=== PATIENT | female | born 1930 | race Caucasian/White ===

== ENCOUNTER 2017-02-25 10:35 | Emergency (ER) | payer MEDICARE, BC ==
[2017-02-25 13:51] VITALS: BP 130/69
--- NOTE | 2017-02-25 13:55 | CR ---
Two-view chest Comparison: Rib series from 2009. Findings: There has been interval development of a 2.6 cm nodular density seen centrally within the left upper lobe region. The finding is concerning for a pulmonary nodule. There are no infiltrates or effusions. There is borderline cardiac enlargement. The vascular structures are within normal limits. Impression: 1. Probable left upper lobe pulmonary nodule. Nonemergent chest CT is recommended for further evaluat ion. 2. No acute findings.
== END 2017-02-25 13:49 | disposition home or self-care (01) ==
LOC: JP.ED 10:35
DX: R07.89 Other chest pain (principal)
CPT/HCPCS: 36415; 71020; 71020-26; 80053; 84484; 85025; 85379; 93005; 93010; 99285; 99285-25

== ENCOUNTER 2017-10-23 22:32 | Emergency (ER) | payer MEDICARE, BC ==
[2017-10-23 22:46] VITALS: BP 140/64
[2017-10-23] MEDS ORDERED: HYDROmorphone 0.5 MG/0.5 ML Syringe IM ONE (23:32)
--- NOTE | 2017-10-23 23:38 | EDM.PDOC ---
ED HPI GENERAL MEDICAL PROBLEM - General Chief Complaint: Lower Extremity Injury/Pain Stated Complaint: HIP PAIN VIA NORTH Time Seen by Provider: 10/23/17 22:50 Source of Information: Reports: Patient History Limitations: Reports: No Limitations - History of Present Illness INITIAL COMMENTS - FREE TEXT/NARRATIVE: pt arrived with severe pain in the left hip. She has seen Hayley Godwin and she did have a injection into the hip On thursday. At this point she has not seen benefit from the shot. She has an appt with follow up with Hayley Godwin On thu. She was not given any pain meds so she has been very uncomfortable. Onset: Gradual Duration: Day(s): Location: Reports: Lower Extremity, Left Associated Symptoms: Reports: No Other Symptoms Left Hip Pain Score (Numeric/FACES): 5 - Related Data Allergies Allergy/AdvReac Type Severity Reaction Status Date / Time cortisone Allergy Other Verified 10/23/17 23:09 prednisone Allergy Other Verified 10/23/17 23:09 environmental Allergy Other Uncoded 10/23/17 23:09 Home Meds: Home Meds Aspirin [Low Dose Aspirin EC] 81 mg PO DAILY 11/03/14 [History] Atenolol 50 mg PO DAILY 11/03/14 [History] B2/Vit A,C & E/Lut/Zeaxanth/Mn [Icaps] 1 cap PO DAILY 11/03/14 [History] Cholecalciferol (Vitamin D3) [Vitamin D] 400 unit PO DAILY 11/03/14 [History] Doxazosin Mesylate [Cardura] 1 mg PO DAILY 11/03/14 [History] FLUoxetine [PROzac] 20 mg PO DAILY 11/03/14 [History] Pantoprazole [Protonix] 20 mg PO DAILY 11/03/14 [History] Ubidecarenone/Vitamin E Mixed [Coenzyme Q10 200 MG] 200 mg PO DAILY 11/03/14 [ History] atorvaSTATin [Lipitor] 40 mg PO BEDTIME 11/03/14 [History] Sulindac [Clinoril] 200 mg PO BIDMEALS 10/20/17 [History] Past Medical History HEENT History: Reports: Macular Degeneration Cardiovascular History: Reports: High Cholesterol, Hypertension 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: 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, Musculoskeletal History: Reports: Arthritis, Osteoarthritis Psychiatric History: Reports: Depression Hematologic History: Reports: Folic Acid Oncologic (Cancer) History: Reports: Other (See Below) Other Oncologic History: 1980 lympnode in left hip with radiation Other Dermatologic History: RASH IN BILATERAL GROIN AREA - Infectious Disease History Infectious Disease History: Reports: Chicken Pox, Influenza, Measles, Mumps, Shingles - Past Surgical History HEENT Surgical History: Reports: Cataract Surgery GI Surgical History: Reports: Colonoscopy Female Surgical History: Reports: Hysterectomy Social & Family History - Family History Family Medical History: Unobtainable - Tobacco Use Smoking Status *Q: Never Smoker - Caffeine Use Caffeine Use: Reports: Coffee - Recreational Drug Use Recreational Drug Use: No Review of Systems - Review of Systems Review Of Systems: See Below Constitutional: Reports: No Symptoms Eyes: Reports: No Symptoms Ears: Reports: No Symptoms Nose: Reports: No Symptoms Mouth/Throat: Reports: No Symptoms Respiratory: Reports: No Symptoms Cardiovascular: Reports: No Symptoms GI/Abdominal: Reports: No Symptoms Genitourinary: Reports: No Symptoms Musculoskeletal: Reports: Joint Pain, Other ( left hip) ED EXAM, GENERAL - Physical Exam Exam: See Below Free Text/Narrative:: pt arrived with pain in the left hip. She feels like she needs pain meds. Exam Limited By: No Limitations General Appearance: Alert, Moderate Distress Ears: Normal TMs Nose: Normal Inspection Throat/Mouth: Normal Inspection Head: Atraumatic Neck: Normal Inspection Respiratory/Chest: No Respiratory Distress Cardiovascular: Regular Rate, Rhythm GI/Abdominal: Soft, Non-Tender (Female) Exam: Deferred Rectal (Female) Exam: Deferred Back Exam: Normal Inspection Extremities: Other ( tender over the left hip joint capsule. ) Neurological: Alert, Oriented, Normal Cognition Course - Vital Signs Last Recorded V/S: Last Vital Signs Temp 36.5 C 10/23/17 23:07 Pulse 74 10/23/17 23:07 Resp 15 10/23/17 23:07 BP 140/64 10/23/17 23:07 Pulse Ox 95 10/23/17 23:07 - Orders/Labs/Meds Orders: Active Orders 24 hr Category Date Time Status HYDROmorphone [Dilaudid] Med 10/23/17 23:32 Once 0.5 mg IM ONETIME ONE - Re-Assessments/Exams Free Text/Narrative Re-Assessment/Exam: 10/23/17 23:40 pt was given dilaudis .5 im. Departure - Departure Time of Disposition: 23:40 Disposition: Home, Self-Care 01 Condition: Fair Clinical Impression: Degenerative joint disease of left hip - Discharge Information Referrals: PCP,None [Primary Care Provider] - Care Plan Goals: cont dequan hoover 5/325 1/2 to 1 tab q6h prn for pain - My Orders Last 24 Hours: My Active Orders 10/23/17 23:32 HYDROmorphone [Dilaudid] 0.5 mg IM ONETIME ONE - Assessment/Plan Last 24 Hours: My Active Orders 10/23/17 23:32 HYDROmorphone [Dilaudid] 0.5 mg IM ONETIME ONE
== END 2017-10-24 00:20 | disposition home or self-care (01) ==
LOC: JP.ED 22:32
DX: M16.12 Unilateral primary osteoarthritis, left hip (principal); E78.00 Pure hypercholesterolemia, unspecified; I10 Essential (primary) hypertension; K21.9 Gastro-esophageal reflux disease without esophagitis; Z79.82 Long term (current) use of aspirin; Z79.899 Other long term (current) drug therapy; Z91.09 Other allergy status, other than to drugs and biological substances; Z88.8 Allergy status to other drugs, medicaments and biological substances
CPT/HCPCS: 96372; 99284; J1170

== ENCOUNTER 2017-10-29 11:34 | Emergency (ER) | payer MEDICARE, BC ==
[2017-10-29 11:55] VITALS: BP 148/70
--- NOTE | 2017-10-29 12:38 | EDM.PDOC ---
ED HPI GENERAL MEDICAL PROBLEM - General Chief Complaint: Lower Extremity Injury/Pain Stated Complaint: PAIN IN HIPS AND BACK Time Seen by Provider: 10/29/17 12:20 Source of Information: Reports: Patient History Limitations: Reports: No Limitations - History of Present Illness INITIAL COMMENTS - FREE TEXT/NARRATIVE: 87-year-old female who has been having worsening pain in her lower back and hips for the past several months. She has ongoing care and recurring evaluations by orthopedics. She was seen in the emergency room a week ago with an acute flare, was given 10 hydrocodone which worked very well for her one or 2 tablets a day. Yesterday she was rechecked by orthopedics, x-rays were done and she is still having some significant discomfort and difficulty with ambulation and the pain pills were much help. She was able to take care of her and get around and take care of her routine daily activities. However orthopedics would not supply her with any additional pain medicine and told her she needs to see her primary provider, who also could not fit her in yesterday or today. She is here hoping to get some pain relief. She is 87 years old, has never abused pain medications and has legitimate pain. Onset: Unknown/Unsure Location: Reports: Back Severity: Moderate Back Pain Score (Numeric/FACES): 8 - Related Data Allergies Allergy/AdvReac Type Severity Reaction Status Date / Time cortisone AdvReac Other Verified 10/29/17 12:07 prednisone AdvReac Other Verified 10/29/17 12:07 environmental Allergy Other Uncoded 10/23/17 23:09 Home Meds: Home Meds Aspirin [Low Dose Aspirin EC] 81 mg PO DAILY 11/03/14 [History] Atenolol 50 mg PO DAILY 11/03/14 [History] B2/Vit A,C & E/Lut/Zeaxanth/Mn [Icaps] 1 cap PO DAILY 11/03/14 [History] Cholecalciferol (Vitamin D3) [Vitamin D] 400 unit PO DAILY 11/03/14 [History] Doxazosin Mesylate [Cardura] 1 mg PO DAILY 11/03/14 [History] FLUoxetine [PROzac] 20 mg PO DAILY 11/03/14 [History] Pantoprazole [Protonix] 20 mg PO DAILY 11/03/14 [History] Ubidecarenone/Vitamin E Mixed [Coenzyme Q10 200 MG] 200 mg PO DAILY 11/03/14 [ History] atorvaSTATin [Lipitor] 40 mg PO BEDTIME 11/03/14 [History] Sulindac [Clinoril] 200 mg PO BIDMEALS 10/20/17 [History] Past Medical History HEENT History: Reports: Macular Degeneration Cardiovascular History: Reports: High Cholesterol, Hypertension 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: 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: 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, Musculoskeletal History: Reports: Arthritis, Osteoarthritis Psychiatric History: Reports: Depression Hematologic History: Reports: Folic Acid Oncologic (Cancer) History: Reports: Other (See Below) Other Oncologic History: 1980 lympnode in left hip with radiation Other Dermatologic History: RASH IN BILATERAL GROIN AREA - Infectious Disease History Infectious Disease History: Reports: Chicken Pox, Influenza, Measles, Mumps, Shingles - Past Surgical History HEENT Surgical History: Reports: Cataract Surgery GI Surgical History: Reports: Colonoscopy Female Surgical History: Reports: Hysterectomy Social & Family History - Family History Family Medical History: Unobtainable - Tobacco Use Smoking Status *Q: Never Smoker - Caffeine Use Caffeine Use: Reports: Coffee - Recreational Drug Use Recreational Drug Use: No Review of Systems - Review of Systems Review Of Systems: See Below Constitutional: Denies: Fever Respiratory: Denies: Shortness of Breath Cardiovascular: Denies: Chest Pain GI/Abdominal: Denies: Abdominal Pain Skin: Denies: Rash Psychiatric: Reports: No Symptoms ED EXAM, GENERAL - Physical Exam Exam: See Below Exam Limited By: No Limitations General Appearance: Alert, No Apparent Distress Respiratory/Chest: No Respiratory Distress Back Exam: Paraspinal Tenderness (Lumbar) Extremities: Other (Increased pulling sensation to the lower back with flexion of the hips or rotation passively of the hips) Neurological: Alert, Oriented Psychiatric: Anxious Skin Exam: Warm, Dry. No: Rash Course - Vital Signs Last Recorded V/S: Last Vital Signs Temp 98.2 F 10/29/17 12:03 Pulse 68 10/29/17 12:03 Resp 13 10/29/17 12:03 BP 148/70 H 10/29/17 12:03 Pulse Ox 94 L 10/29/17 12:03 - Re-Assessments/Exams Free Text/Narrative Re-Assessment/Exam: 10/29/17 12:37 No further exam was done as this patient has care ongoing by orthopedics. She was supplied with 20 additional hydrocodone to use one every 4-6 hours for pain control, she probably will not even use them that often. She can recheck with her primary next week. Departure - Departure Time of Disposition: 12:59 Disposition: Home, Self-Care 01 Condition: Fair Clinical Impression: Degenerative joint disease of left hip Qualifiers: Osteoarthritis type: unspecified Qualified Code(s): M16.12 - Unilateral primary osteoarthritis, left hip Low back pain Qualifiers: Chronicity: chronic Back pain laterality: bilateral Sciatica presence: without sciatica Qualified Code(s): M54.5 - Low back pain - Discharge Information Instructions: Musculoskeletal Pain Referrals: China Ayers MD [Primary Care Provider] - Forms: ED Department Discharge Care Plan Goals: Continue your current medications and add stronger pain medications as prescribed. Recheck with orthopedics or primary care next week if not improving.
== END 2017-10-29 12:59 | disposition home or self-care (01) ==
LOC: JP.ED 11:34
DX: M16.12 Unilateral primary osteoarthritis, left hip (principal); M54.5 Low back pain; E78.00 Pure hypercholesterolemia, unspecified; I10 Essential (primary) hypertension; K21.9 Gastro-esophageal reflux disease without esophagitis; Z88.8 Allergy status to other drugs, medicaments and biological substances; Z88.5 Allergy status to narcotic agent; Z79.82 Long term (current) use of aspirin; Z79.899 Other long term (current) drug therapy
CPT/HCPCS: 99282; 99283

== ENCOUNTER 2018-08-16 10:17 | Emergency (ER) | payer MEDICARE, BC ==
[2018-08-16] MEDS ORDERED: Acetaminophen 325 MG Tab PO ONE (10:46)
[2018-08-16] MEDS ORDERED: Atenolol 50 MG Tab PO ONE (10:46)
[2018-08-16] MEDS ORDERED: Doxazosin 4 MG Tab PO ONE (10:49)
--- NOTE | 2018-08-16 11:00 | EDM.PDOC ---
ED HPI GENERAL MEDICAL PROBLEM - General Chief Complaint: Neurological Problem Stated Complaint: HEAD IS HURTING HIT CABINET DOOR Time Seen by Provider: 08/16/18 10:38 Source of Information: Reports: Patient, Old Records, RN Notes Reviewed History Limitations: Reports: No Limitations - History of Present Illness INITIAL COMMENTS - FREE TEXT/NARRATIVE: 88-year-old female presents emergency department today complaint of head injury 2 weeks ago when she accidentally bumped her head on a cupboard while she was bending over she states that she is having pain in that spot is a numb area she has no nausea vomiting no shortness of breath no difficulty ambulating describes no other difficulties however review of records states she told the triage nurse that she is having disorientation this morning for 5 seconds and problems with her vision which she denies at this time - Related Data Allergies Allergy/AdvReac Type Severity Reaction Status Date / Time cortisone AdvReac Other Verified 08/16/18 10:38 prednisone AdvReac Other Verified 08/16/18 10:38 environmental Allergy Other Uncoded 08/16/18 10:38 Home Meds: Home Meds Atenolol 50 mg PO DAILY 11/03/14 [History] Doxazosin Mesylate [Cardura] 1 mg PO DAILY 11/03/14 [History] FLUoxetine [PROzac] 20 mg PO DAILY 11/03/14 [History] Pantoprazole [Protonix] 20 mg PO DAILY 11/03/14 [History] atorvaSTATin [Lipitor] 40 mg PO BEDTIME 11/03/14 [History] Past Medical History HEENT History: Reports: Macular Degeneration Cardiovascular History: Reports: High Cholesterol, Hypertension 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: Reports: GERD 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, Musculoskeletal History: Reports: Arthritis, Osteoarthritis Psychiatric History: Reports: Depression Hematologic History: Reports: Folic Acid Oncologic (Cancer) History: Reports: Other (See Below) Other Oncologic History: 1980 lympnode in left hip with radiation Other Dermatologic History: RASH IN BILATERAL GROIN AREA - Infectious Disease History Infectious Disease History: Reports: Chicken Pox, Influenza, Measles, Mumps, Shingles - Past Surgical History HEENT Surgical History: Reports: Cataract Surgery GI Surgical History: Reports: Colonoscopy Female Surgical History: Reports: Hysterectomy Social & Family History - Family History Family Medical History: Unobtainable - Tobacco Use Smoking Status *Q: Never Smoker - Caffeine Use Caffeine Use: Reports: Coffee ED ROS GENERAL - Review of Systems Review Of Systems: ROS reveals no pertinent complaints other than HPI. ED EXAM, HEAD INJURY - Physical Exam Exam: See Below Exam Limited By: No Limitations General Appearance: Alert, WD/WN, No Apparent Distress Head: Normocephalic, Scalp Tenderness Nexus Criteria: No: Posterior, Midline Cervical Tenderness, Evidence of Intoxication, Altered Level of Consciousness, Focal Neurological Deficit, Painful Distraction Injuries Eyes: Bilateral Eye: EOMI, PERRL Respiratory: No Respiratory Distress, Lungs Clear Cardiovascular: Regular Rate, Rhythm, No Murmur Course - Vital Signs Last Recorded V/S: Last Vital Signs Temp 97.0 F 08/16/18 10:32 Pulse 82 08/16/18 11:00 Resp 12 08/16/18 10:32 BP 150/72 H 08/16/18 11:19 Pulse Ox 92 L 08/16/18 10:32 - Orders/Labs/Meds Meds: Medications Discontinued Medications Generic Name Dose Route Start Last Admin Trade Name Freq PRN Reason Stop Dose Admin Acetaminophen 650 mg 08/16/18 10:46 08/16/18 10:57 Tylenol PO 08/16/18 10:47 650 mg NOW ONE Administration Atenolol 50 mg 08/16/18 10:46 08/16/18 11:00 Tenormin PO 08/16/18 10:47 50 mg ONETIME ONE Administration Doxazosin Mesylate 1 mg 08/16/18 10:49 08/16/18 10:56 Cardura PO 08/16/18 10:50 1 mg ONETIME ONE Administration Departure - Departure Time of Disposition: 12:02 Disposition: Home, Self-Care 01 Condition: Fair Clinical Impression: Concussion Qualifiers: Encounter type: initial encounter Loss of consciousness presence/duration: without LOC Qualified Code(s): S06.0X0A - Concussion without loss of consciousness, initial encounter Hypertension Qualifiers: Hypertension type: essential hypertension Qualified Code(s): I10 - Essential ( primary) hypertension - Discharge Information Referrals: China Ayers MD [Primary Care Provider] - Forms: ED Department Discharge Additional Instructions: continue to use Tylenol as needed for pain control, recommend follow-up with your primary care in 3-5 days if no improvement call return to the emergency department worsening of symptoms - Assessment/Plan Plan: Assessment Acuity = acute Site and laterality = head injury with hypertension Etiology = hypertension secondary to medical compliance Manifestations = none Location of injury = Home Lab values = none] Plan She had good improvement after we provided her her normal blood pressure medications she was also given 650 mg Tylenol which also provided good relief she was able to move her neck without difficulty headache had resolved plan is follow-up primary care 3-5 days if no improvement This note was dictated using [employer] voice recognition software please call with any questions on syntax or grammar.
[2018-08-16 11:20] VITALS: BP 150/72
== END 2018-08-16 12:15 | disposition home or self-care (01) ==
LOC: JP.ED 10:17
DX: S06.0X0A Concussion without loss of consciousness, initial encounter (principal); E78.00 Pure hypercholesterolemia, unspecified; I10 Essential (primary) hypertension; F32.9 Major depressive disorder, single episode, unspecified; Z88.8 Allergy status to other drugs, medicaments and biological substances; Z79.899 Other long term (current) drug therapy; W22.8XXA Striking against or struck by other objects, initial encounter
CPT/HCPCS: 99283; A9270-GY

== ENCOUNTER 2019-08-06 16:40 | Emergency (ER) | payer MEDICARE, BC ==
[2019-08-06 16:47] VITALS: BP 141/84; PULSE 79
[2019-08-06] MEDS ORDERED: Sodium Chloride 0.9% 10 ML Syringe FLUSH PRN (17:10)
[2019-08-06] MEDS ORDERED: fentaNYL 100 MCG/2 ML SDV IVPUSH ONE (17:10)
[2019-08-06] MEDS ORDERED: Prochlorperazine 10 MG/2 ML SDV IVPUSH ONE (17:11)
[2019-08-06] MEDS ORDERED: Lactated Ringers 1,000 ML IV ONE (17:11)
--- NOTE | 2019-08-06 17:22 | EDM.PDOC ---
ED HPI GENERAL MEDICAL PROBLEM - General Chief Complaint: Gastrointestinal Problem Stated Complaint: MED VIA NORTH Time Seen by Provider: 08/06/19 17:02 Source of Information: Reports: Patient, Family, RN Notes Reviewed History Limitations: Reports: No Limitations - History of Present Illness INITIAL COMMENTS - FREE TEXT/NARRATIVE: 89-year-old female presents emergency department with a complaint of nausea and vomiting increasing pain, she has known history of lung cancer with metastases does have fentanyl at home patch form as well as hydrocodone for intermittent breakthrough pain and Zofran she has been using the Zofran ODT twice daily prescription is for every 6 hours unfortunately she states within an hour she starts having nausea and vomiting again she currently completed a dose of radiation therapy for her bone metastases which has increased her pain level. She presented the emergency department today via EMS services family members are present. - Related Data Allergies Allergy/AdvReac Type Severity Reaction Status Date / Time cortisone AdvReac Other Verified 08/06/19 16:44 prednisone AdvReac Other Verified 08/06/19 16:44 environmental Allergy Other Uncoded 08/06/19 16:44 Home Meds: Home Meds Doxazosin Mesylate [Cardura] 1 mg PO DAILY 11/03/14 [History] atenoloL [Atenolol] 50 mg PO DAILY 11/03/14 [History] atorvaSTATin [Lipitor] 40 mg PO BEDTIME 11/03/14 [History] levETIRAcetam [Keppra] 500 mg PO BID 09/20/18 [History] HYDROmorphone [Dilaudid] 2 mg PO Q4H PRN #30 tab 08/06/19 [Rx] Hydrocodone/Acetaminophen [Hydrocodon-Acetaminophen 5-325] 1 each PO ASDIRECTED 08/06/19 [History] Ondansetron [Zofran ODT] 4 mg PO DAILY 08/06/19 [History] Prochlorperazine [Compazine] 10 mg PO Q6H PRN #30 tab 08/06/19 [Rx] Prochlorperazine [Compazine] 25 mg RC BID PRN #10 supp.rect 08/06/19 [Rx] Sucralfate [Carafate] 1 gm PO ASDIRECTED 08/06/19 [History] Past Medical History HEENT History: Reports: Macular Degeneration Cardiovascular History: Reports: High Cholesterol, Hypertension Respiratory History: Reports: SOB 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: Reports: Chronic Constipation, 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, Musculoskeletal History: Reports: Arthritis, Osteoarthritis Psychiatric History: Reports: Depression Hematologic History: Reports: Folic Acid Oncologic (Cancer) History: Reports: Brain, Lung, Metastatic, Other (See Below) Other Oncologic History: 1980 lympnode in left hip with radiation, left arm Other Dermatologic History: RASH IN BILATERAL GROIN AREA - Infectious Disease History Infectious Disease History: Reports: Chicken Pox, Influenza, Measles, Mumps, Shingles - Past Surgical History Head Surgeries/Procedures: Reports: None HEENT Surgical History: Reports: Cataract Surgery Cardiovascular Surgical History: Reports: None Respiratory Surgical History: Reports: Lung Biopsies GI Surgical History: Reports: Colonoscopy Female Surgical History: Reports: Hysterectomy Musculoskeletal Surgical History: Reports: None Oncologic Surgical History: Reports: None Dermatological Surgical History: Reports: None Social & Family History - Family History Family Medical History: Unobtainable - Tobacco Use Smoking Status *Q: Never Smoker Second Hand Smoke Exposure: No - Caffeine Use Caffeine Use: Reports: None - Recreational Drug Use Recreational Drug Use: No ED ROS GENERAL - Review of Systems Review Of Systems: See Below Constitutional: Denies: Fever, Chills HEENT: Reports: No Symptoms Respiratory: Reports: No Symptoms Cardiovascular: Reports: No Symptoms GI/Abdominal: Reports: Nausea, Vomiting. Denies: Abdominal Pain Musculoskeletal: Reports: Other (Bone pain) ED EXAM, GI/ABD - Physical Exam Exam: See Below Exam Limited By: No Limitations General Appearance: Alert, WD/WN, No Apparent Distress Respiratory/Chest: No Respiratory Distress, Lungs Clear, Normal Breath Sounds, No Accessory Muscle Use, Chest Non-Tender Cardiovascular: Regular Rate, Rhythm, No Murmur GI/Abdominal Exam: Soft, Non-Tender Course - Vital Signs Last Recorded V/S: Last Vital Signs Temp 95.9 F L 08/06/19 16:50 Pulse 79 08/06/19 16:50 Resp 16 08/06/19 16:50 BP 141/84 H 08/06/19 16:50 Pulse Ox 99 08/06/19 16:50 - Orders/Labs/Meds Orders: Active Orders 24 hr Category Date Time Status Peripheral IV Care [RC] . DIRECTED Care 08/06/19 17:10 Active Peripheral IV Insertion Adult [OM.PC] Urgent Oth 08/06/19 17:10 Ordered Labs: Laboratory Tests 08/06/19 08/06/19 08/06/19 Range/Units 17:24 17:24 17:24 WBC 7.0 (4.5-11.0) K/uL RBC 4.20 (3.30-5.50) M/uL Hgb 13.4 (12.0-15.0) g/dL Hct 40.0 (36.0-48.0) % MCV 95 (80-98) fL MCH 32 H (27-31) pg MCHC 34 (32-36) % Plt Count 253 (150-400) K/uL Neut % (Auto) 51 (36-66) % Lymph % (Auto) 37 (24-44) % Howard % (Auto) 11 H (2-6) % Eos % (Auto) 1 L (2-4) % Baso % (Auto) 1 (0-1) % Sodium 140 (140-148) mmol/L Potassium 3.7 (3.6-5.2) mmol/L Chloride 102 (100-108) mmol/L Carbon Dioxide 26 (21-32) mmol/L Anion Gap 11.6 (5.0-14.0) mmol/L BUN 10 (7-18) mg/dL Creatinine 0.7 (0.6-1.0) mg/dL Est Cr Clr Drug Dosing 41.11 mL/min Estimated GFR (MDRD) > 60 (>60) Glucose 96 (74-106) mg/dL Calcium 8.8 (8.5-10.1) mg/dL Total Bilirubin 0.8 (0.2-1.0) mg/dL AST 16 (15-37) U/L ALT 17 (12-78) U/L Alkaline Phosphatase 109 D (46-116) U/L Troponin I < 0.017 (0.000-0.056) ng/mL Total Protein 5.6 L (6.4-8.2) g/dL Albumin 2.7 L (3.4-5.0) g/dL Globulin 2.9 (2.3-3.5) g/dL Albumin/Globulin Ratio 0.9 L (1.2-2.2) Meds: Medications Discontinued Medications Generic Name Dose Route Start Last Admin Trade Name Freq PRN Reason Stop Dose Admin Fentanyl 50 mcg 08/06/19 17:10 08/06/19 17:29 Sublimaze IVPUSH 08/06/19 17:11 50 mcg ONETIME ONE Administration Hydromorphone HCl 1 mg 08/06/19 17:59 08/06/19 18:04 Dilaudid IVPUSH 08/06/19 18:00 1 mg ONETIME ONE Administration Lactated Ringer's 1,000 mls @ 500 mls/hr 08/06/19 17:11 08/06/19 17:26 Ringers, Lactated IV 08/06/19 19:10 500 mls/hr BOLUS ONE Administration Prochlorperazine Edisylate 5 mg 08/06/19 17:11 08/06/19 17:27 Compazine IVPUSH 08/06/19 17:12 5 mg ONETIME ONE Administration Prochlorperazine Maleate 10 mg 08/06/19 18:16 08/06/19 18:31 Compazine PO 08/06/19 18:17 10 mg ONETIME ONE Administration Sodium Chloride 10 ml 08/06/19 17:10 08/06/19 17:30 Saline Flush FLUSH 10 ml ASDIRECTED PRN Administration Keep Vein Open Departure - Departure Time of Disposition: 06:58 Disposition: Home, Self-Care 01 Condition: Poor Clinical Impression: Lung cancer metastatic to bone, Lung cancer metastatic to brain Nausea and vomiting Qualifiers: Vomiting type: unspecified Vomiting Intractability: non-intractable Qualified Code(s): R11.2 - Nausea with vomiting, unspecified - Discharge Information Prescriptions: HYDROmorphone [Dilaudid] 2 mg PO Q4H PRN #30 tab PRN Reason: Pain Prochlorperazine [Compazine] 10 mg PO Q6H PRN #30 tab PRN Reason: Vomiting Prochlorperazine [Compazine] 25 mg RC BID PRN #10 supp.rect PRN Reason: Vomiting Instructions: Nausea and Vomiting, Adult, [id number] Referrals: PCP,None [Primary Care Provider] - Forms: ED Department Discharge Additional Instructions: Use the Compazine as needed for nausea and vomiting you have both oral or rectal , use the Dilaudid instead of hydrocodone for breakthrough pain continue using your fentanyl patch, call or return to the emergency department for worsening of symptoms Sepsis Event Note - Evaluation Sepsis Screening Result: No Definite Risk - Focused Exam Date Exam was Performed: 08/07/19 Time Exam was Performed: 06:58 - My Orders Last 24 Hours: My Active Orders 08/06/19 17:10 Peripheral IV Care [RC] . DIRECTED Peripheral IV Insertion Adult [OM.PC] Urgent - Assessment/Plan Last 24 Hours: My Active Orders 08/06/19 17:10 Peripheral IV Care [RC] . DIRECTED Peripheral IV Insertion Adult [OM.PC] Urgent
[2019-08-06] MEDS ORDERED: HYDROmorphone 1 MG/ML Syringe IVPUSH ONE (17:59)
[2019-08-06] MEDS ORDERED: Prochlorperazine 10 MG Tab PO ONE (18:16)
== END 2019-08-06 19:28 | disposition home or self-care (01) ==
LOC: JP.ED 16:40
DX: R11.2 Nausea with vomiting, unspecified (principal); E78.00 Pure hypercholesterolemia, unspecified; I10 Essential (primary) hypertension; C34.90 Malignant neoplasm of unspecified part of unspecified bronchus or lung; C79.51 Secondary malignant neoplasm of bone; C79.31 Secondary malignant neoplasm of brain; Z91.09 Other allergy status, other than to drugs and biological substances; Z79.899 Other long term (current) drug therapy
CPT/HCPCS: 36415; 80053; 84484; 85025; 96361; 96374; 96375; 99283; 99284; J0780; J1170; J3010; J7120; Q0164

== ENCOUNTER 2019-09-10 05:42 | Emergency (ER) | payer MEDICARE, BC ==
--- NOTE | 2019-09-10 06:40 | EDM.PDOC ---
<Mariama Mcintyre - Last Filed: 09/10/19 06:43> ED HPI GENERAL MEDICAL PROBLEM - General Chief Complaint: Neurological Problem Stated Complaint: MEDICAL [facility] Time Seen by Provider: 09/10/19 06:38 Source of Information: Reports: Patient, EMS, Family History Limitations: Reports: No Limitations - History of Present Illness INITIAL COMMENTS - FREE TEXT/NARRATIVE: pt has a history of lung ca and has known metastatic brain disease. She woke up this am and had difficulty getting out of bed. She did not have a increased headache. She did not feel she was weaker on one side than the other. She is much miore sleepy today than usual. She is using alot of narcotics for pain. Onset: Today, Sudden Duration: Hour(s): Location: Reports: Head, Generalized Associated Symptoms: Reports: Weakness - Related Data Allergies Allergy/AdvReac Type Severity Reaction Status Date / Time environmental Allergy Other Uncoded 09/10/19 05:58 Home Meds: Home Meds Doxazosin Mesylate [Cardura] 1 mg PO DAILY 11/03/14 [History] atenoloL [Atenolol] 50 mg PO DAILY 11/03/14 [History] atorvaSTATin [Lipitor] 40 mg PO BEDTIME 11/03/14 [History] levETIRAcetam [Keppra] 500 mg PO BID 09/20/18 [History] HYDROmorphone [Dilaudid] 2 mg PO Q4H PRN #30 tab 08/06/19 [Rx] Hydrocodone/Acetaminophen [Hydrocodon-Acetaminophen 5-325] 1 each PO ASDIRECTED 08/06/19 [History] Ondansetron [Zofran ODT] 4 mg PO DAILY 08/06/19 [History] Prochlorperazine [Compazine] 10 mg PO Q6H PRN #30 tab 08/06/19 [Rx] Prochlorperazine [Compazine] 25 mg RC BID PRN #10 supp.rect 08/06/19 [Rx] Sucralfate [Carafate] 1 gm PO ASDIRECTED 08/06/19 [History] Past Medical History HEENT History: Reports: Macular Degeneration Cardiovascular History: Reports: High Cholesterol, Hypertension Respiratory History: Reports: SOB 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: Reports: Chronic Constipation, GERD Genitourinary History: Reports: None 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: 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, Musculoskeletal History: Reports: Arthritis, Osteoarthritis Psychiatric History: Reports: Depression Hematologic History: Reports: Folic Acid Oncologic (Cancer) History: Reports: Brain, Lung, Metastatic, Other (See Below) Other Oncologic History: 1980 lympnode in left hip with radiation, left arm Other Dermatologic History: RASH IN BILATERAL GROIN AREA - Infectious Disease History Infectious Disease History: Reports: Chicken Pox, Influenza, Measles, Mumps, Shingles - Past Surgical History Head Surgeries/Procedures: Reports: None HEENT Surgical History: Reports: Cataract Surgery Cardiovascular Surgical History: Reports: None Respiratory Surgical History: Reports: Lung Biopsies GI Surgical History: Reports: Colonoscopy Female Surgical History: Reports: Hysterectomy Musculoskeletal Surgical History: Reports: None Oncologic Surgical History: Reports: None Dermatological Surgical History: Reports: None Social & Family History - Family History Family Medical History: Unobtainable - Tobacco Use Smoking Status *Q: Never Smoker - Caffeine Use Caffeine Use: Reports: None - Recreational Drug Use Recreational Drug Use: No ED ROS GENERAL - Review of Systems Review Of Systems: See Below Constitutional: Reports: Weakness, Decreased Appetite, Weight Loss HEENT: Reports: No Symptoms Respiratory: Reports: No Symptoms Cardiovascular: Reports: No Symptoms Endocrine: Reports: No Symptoms GI/Abdominal: Reports: Anorexia, Decreased Appetite Musculoskeletal: Reports: No Symptoms Skin: Reports: No Symptoms Neurological: Reports: Weakness, Other (her weakness appeared more generalized. ) Hematologic/Lymphatic: Reports: No Symptoms ED EXAM, NEURO - Physical Exam Text/Narrative:: pt woke up this am and she was not able to get out of bed. She did not have a increased headache. She is on alot of narcotics and her last pain med was at about 3 am. She has recently been loosing wt. She seemes much more sleepy today than usual. Exam Limited By: No Limitations General Appearance: Alert, No Apparent Distress, Anxious, Other (pupils are equal and reactive. ) Ears: Normal TMs Nose: Normal Inspection Throat/Mouth: Normal Inspection Head Exam: Atraumatic Neck: Normal Inspection Respiratory/Chest: No Respiratory Distress Cardiovascular: Regular Rate, Rhythm GI/Abdominal: Soft, Non-Tender (Female) Exam: Deferred Rectal (Female) Exam: Deferred Neurological: Alert, Oriented x 3 Back Exam: Normal Inspection Extremities: Normal Inspection Psychiatric: Depressed Mood Course - Vital Signs Last Recorded V/S: Last Vital Signs Temp 97.0 F 09/10/19 05:52 Pulse 54 L 09/10/19 07:40 Resp 22 H 09/10/19 07:40 BP 143/60 H 09/10/19 07:40 Pulse Ox 99 09/10/19 07:40 - Orders/Labs/Meds Orders: Active Orders 24 hr Category Date Time Status EKG Documentation Completion [RC] ASDIRECTED Care 09/10/19 06:47 Active Chest 2V [CR] Stat Exams 09/10/19 06:41 Taken Sodium Chloride 0.9% [Normal Saline] 1,000 ml Med 09/10/19 06:45 Active IV ASDIRECTED EKG 12 Lead [EK] Routine Ther 09/10/19 06:47 Ordered Medication Orders Sodium Chloride (Normal Saline) 1,000 mls @ 999 mls/hr IV ASDIRECTED MICHEAL Last Admin: 09/10/19 06:54 Dose: 999 mls/hr Labs: Laboratory Tests 09/10/19 09/10/19 09/10/19 Range/Units 05:52 06:00 06:00 WBC 5.5 (4.5-11.0) K/uL RBC 3.94 (3.30-5.50) M/uL Hgb 12.3 (12.0-15.0) g/dL Hct 38.2 (36.0-48.0) % MCV 97 (80-98) fL MCH 31 (27-31) pg MCHC 32 (32-36) % Plt Count 286 (150-400) K/uL Neut % (Auto) 57 (36-66) % Lymph % (Auto) 29 (24-44) % Hartley % (Auto) 14 H (2-6) % Eos % (Auto) 0 L (2-4) % Baso % (Auto) 0 (0-1) % Sodium 138 L (140-148) mmol/L Potassium 4.0 (3.6-5.2) mmol/L Chloride 103 (100-108) mmol/L Carbon Dioxide 28 (21-32) mmol/L Anion Gap 11.0 (5.0-14.0) mmol/L BUN 13 (7-18) mg/dL Creatinine 0.7 (0.6-1.0) mg/dL Est Cr Clr Drug Dosing TNP Estimated GFR (MDRD) > 60 (>60) Glucose 105 (74-106) mg/dL Lactic Acid (0.4-2.0) mmol/L Calcium 8.2 L (8.5-10.1) mg/dL Total Bilirubin 0.5 (0.2-1.0) mg/dL AST 14 L (15-37) U/L ALT 23 (12-78) U/L Alkaline Phosphatase 109 (46-116) U/L Total Protein 5.7 L (6.4-8.2) g/dL Albumin 2.9 L (3.4-5.0) g/dL Globulin 2.8 (2.3-3.5) g/dL Albumin/Globulin Ratio 1.0 L (1.2-2.2) Urine Color Yellow (YELLOW) Urine Appearance Clear (CLEAR) Urine pH 7.0 (5.0-8.0) Ur Specific Lincoln 1.020 (1.008-1.030) Urine Protein Negative (NEGATIVE) mg/dL Urine Glucose (UA) Negative (NEGATIVE) mg/dL Urine Ketones Negative (NEGATIVE) mg/dL Urine Occult Blood Negative (NEGATIVE) Urine Nitrite Negative (NEGATIVE) Urine Bilirubin Negative (NEGATIVE) Urine Urobilinogen 0.2 (0.2-1.0) EU/dL Ur Leukocyte Esterase Negative (NEGATIVE) Urine RBC 0-5 (0-5) Urine WBC 0-5 (0-5) Ur Epithelial Cells Not seen Amorphous Sediment Not seen Urine Bacteria Few Urine Mucus Not seen 09/10/19 Range/Units 06:42 WBC (4.5-11.0) K/uL RBC (3.30-5.50) M/uL Hgb (12.0-15.0) g/dL Hct (36.0-48.0) % MCV (80-98) fL MCH (27-31) pg MCHC (32-36) % Plt Count (150-400) K/uL Neut % (Auto) (36-66) % Lymph % (Auto) (24-44) % Hartley % (Auto) (2-6) % Eos % (Auto) (2-4) % Baso % (Auto) (0-1) % Sodium (140-148) mmol/L Potassium (3.6-5.2) mmol/L Chloride (100-108) mmol/L Carbon Dioxide (21-32) mmol/L Anion Gap (5.0-14.0) mmol/L BUN (7-18) mg/dL Creatinine (0.6-1.0) mg/dL Est Cr Clr Drug Dosing Estimated GFR (MDRD) (>60) Glucose (74-106) mg/dL Lactic Acid 1.4 (0.4-2.0) mmol/L Calcium (8.5-10.1) mg/dL Total Bilirubin (0.2-1.0) mg/dL AST (15-37) U/L ALT (12-78) U/L Alkaline Phosphatase (46-116) U/L Total Protein (6.4-8.2) g/dL Albumin (3.4-5.0) g/dL Globulin (2.3-3.5) g/dL Albumin/Globulin Ratio (1.2-2.2) Urine Color (YELLOW) Urine Appearance (CLEAR) Urine pH (5.0-8.0) Ur Specific Lincoln (1.008-1.030) Urine Protein (NEGATIVE) mg/dL Urine Glucose (UA) (NEGATIVE) mg/dL Urine Ketones (NEGATIVE) mg/dL Urine Occult Blood (NEGATIVE) Urine Nitrite (NEGATIVE) Urine Bilirubin (NEGATIVE) Urine Urobilinogen (0.2-1.0) EU/dL Ur Leukocyte Esterase (NEGATIVE) Urine RBC (0-5) Urine WBC (0-5) Ur Epithelial Cells Amorphous Sediment Urine Bacteria Urine Mucus Meds: Medications Generic Name Dose Route Start Last Admin Trade Name Freq PRN Reason Stop Dose Admin Sodium Chloride 1,000 mls @ 999 mls/hr 09/10/19 06:45 09/10/19 06:54 Normal Saline IV 999 mls/hr ASDIRECTED MICHEAL Administration Departure - Departure Disposition: Home, Self-Care 01 Clinical Impression: Lung cancer metastatic to brain, Somnolence, Opioid use - Discharge Information Referrals: PCP,None [Primary Care Provider] - Forms: ED Department Discharge Additional Instructions: Try to place the fentanyl patch in similar areas during rotation, please followup with your primary care provider in 3-5 days if not better, please call return to the emergency department with worsening of symptoms. Sepsis Event Note - Evaluation Sepsis Screening Result: No Definite Risk - Focused Exam Vital Signs: Vital Signs Temp Pulse Resp BP Pulse Ox 09/10/19 07:40 54 L 22 H 143/60 H 99 09/10/19 05:52 97.0 F 57 L 18 153/77 H 97 Date Exam was Performed: 09/10/19 Time Exam was Performed: 06:43 <OfficerDavid - Last Filed: 09/10/19 10:14> ED EXAM, NEURO - Physical Exam Exam: See Below Departure - Departure Time of Disposition: 10:12 Condition: Poor Sepsis Event Note - Focused Exam Date Exam was Performed: 09/10/19 Time Exam was Performed: 10:11 - Assessment/Plan Plan: Took over care from Dr. Mcintyre at 7 AM Assessment Acuity = acute Site and laterality = somnolence complicated patient with known history of metastatic adenocarcinoma on chronic narcotics Etiology = probably related to fentanyl patch placement had recently increased to 75 mcg patch was placed on a thinner portion of her body with no adipose tissue Manifestations = none Location of injury = Home Lab values = CBC, CMP, urinalysis unremarkable CT scan of the head shows no acute process Plan I did review with her lab work and CT scan results provided them a copy talk to him about patch placement they are going to continue to rotate the patch but try and keep it in similar areas of the body that has the same fat content she is quite thin secondary to her chronic disease, have a follow-up with her primary care in the next 3 to 5 days for reevaluation of medications. This note was dictated using [employer] voice recognition software please call with any questions on syntax or grammar.
[2019-09-10] MEDS ORDERED: Sodium Chloride 0.9% 1,000 ML IV SCH (06:45)
--- NOTE | 2019-09-10 07:35 | CRLCT ---
INDICATION: Altered mental status.Difficulty getting out of bed, much more sleepy. Metastatic lung cancer. COMPARISON: Brain MRI dated 05/20/[address] dated 08/31/2018 TECHNIQUE: A CT volumetric acquisition was performed of the brain without IV contrast. FINDINGS: CT images demonstrate stable parenchymal volume loss within the cerebellum and both cerebral hemispheres. There also stable patchy areas of decreased density in the periventricular white matter consistent with age-related small vessel ischemic change. The subtle area of encephalomalacia within the right insular cortex remains unchanged and is consistent with the area prior treated metastasis. Additionally there is a stable appearance of a mixed lytic and blastic change within the left parietal portion of the calvarium again consistent with a treated area of metastatic disease. There is normal disla white matter differentiation. There is no evidence of a epidural or subdural hemorrhage. There are new areas of intraparenchymal bleeding or localized mass effect. The cerebral ventricles maintain a normal size and midline configuration. The mastoid air cells and middle ear cavities are clear. There is normal aeration of the visualized paranasal sinuses. IMPRESSION: Stable post treatment changes within a metastatic focus involving the insular portion of the right temporal lobe as well as the posterior left parietal calvarium. No evidence of a new mass, hemorrhage or area of tissue infarction. Dictated by Colby Moraes MD @ 09/10/2019 7:34:03 AM Please note that all CT scans at this facility use dose modulation, iterative reconstruction, and/or weight-based dosing when appropriate to reduce radiation dose to as low as reasonably achievable. Dictated by: Colby Moraes MD @ 09/10/2019 07:34:12 (Electronically Signed)
[2019-09-10 07:41] VITALS: BP 143/60; PULSE 54
--- NOTE | 2019-09-12 10:43 | CR ---
CHEST: 2 view CLINICAL HISTORY:Lung carcinoma COMPARISON:CT 07/15/2019 FINDINGS: Patient has a known 3+ centimeter mass in the left upper lobe. Lungs are generally hyperaerated. Heart is mildly enlarged. Pulmonary vascular is normal. There is no effusion. IMPRESSION: Known left upper lobe mass Emphysematous changes
== END 2019-09-10 10:37 | disposition home or self-care (01) ==
LOC: JP.ED 05:42
DX: C34.12 Malignant neoplasm of upper lobe, left bronchus or lung (principal); C79.31 Secondary malignant neoplasm of brain; R40.0 Somnolence; F11.90 Opioid use, unspecified, uncomplicated; Z88.8 Allergy status to other drugs, medicaments and biological substances; Z79.899 Other long term (current) drug therapy
CPT/HCPCS: 36415; 70450; 71046; 80053; 81001; 83605; 85025; 93005; 93010; 96360; 99283; 99285; J7030

== ENCOUNTER 2019-10-15 11:32 | Emergency (ER) | payer MEDICARE, BC ==
[2019-10-15] MEDS ORDERED: Sodium Phosphate,Monobasic/Sodium Phosphate,Dibasic Enema 133 ML Bottle RECTAL ONE (13:27)
--- NOTE | 2019-10-15 13:34 | EDM.PDOC ---
ED HPI GENERAL MEDICAL PROBLEM - General Chief Complaint: Gastrointestinal Problem Stated Complaint: DIFFICULT TIME PASSING STOOL Time Seen by Provider: 10/15/19 12:03 Source of Information: Reports: Patient History Limitations: Reports: No Limitations - History of Present Illness INITIAL COMMENTS - FREE TEXT/NARRATIVE: lower abdoominal pressure with no BM for 4 days. Takes daily opioids for metastatic disease. No vomiting. Uses Miralax daily. Tried Ducolax 4 days ago. Onset: Gradual Duration: Day(s): - Related Data Allergies Allergy/AdvReac Type Severity Reaction Status Date / Time environmental Allergy Other Uncoded 10/15/19 13:10 Home Meds: Home Meds Doxazosin Mesylate [Cardura] 1 mg PO DAILY 11/03/14 [History] atenoloL [Atenolol] 50 mg PO DAILY 11/03/14 [History] atorvaSTATin [Lipitor] 40 mg PO BEDTIME 11/03/14 [History] levETIRAcetam [Keppra] 500 mg PO BID 09/20/18 [History] Hydrocodone/Acetaminophen [Hydrocodon-Acetaminophen 5-325] 1 each PO ASDIRECTED 08/06/19 [History] Ondansetron [Zofran ODT] 4 mg PO DAILY 08/06/19 [History] Prochlorperazine [Compazine] 10 mg PO Q6H PRN #30 tab 08/06/19 [Rx] Prochlorperazine [Compazine] 25 mg RC BID PRN #10 supp.rect 08/06/19 [Rx] Sucralfate [Carafate] 1 gm PO ASDIRECTED 08/06/19 [History] fentaNYL [Duragesic] 75 mcg TD Q72H 10/15/19 [History] Past Medical History HEENT History: Reports: Macular Degeneration Cardiovascular History: Reports: High Cholesterol, Hypertension Respiratory History: Reports: SOB 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: Reports: Chronic Constipation, GERD Genitourinary History: Reports: None 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: 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, Musculoskeletal History: Reports: Arthritis, Osteoarthritis Psychiatric History: Reports: Depression Hematologic History: Reports: Folic Acid Oncologic (Cancer) History: Reports: Bone, Brain, Lung, Metastatic, Other (See Below) Other Oncologic History: 1980 lympnode in left hip with radiation, left arm Other Dermatologic History: RASH IN BILATERAL GROIN AREA - Infectious Disease History Infectious Disease History: Reports: Chicken Pox, Measles, Mumps - Past Surgical History Head Surgeries/Procedures: Reports: None HEENT Surgical History: Reports: Cataract Surgery Cardiovascular Surgical History: Reports: None Respiratory Surgical History: Reports: Lung Biopsies GI Surgical History: Reports: Colonoscopy Female Surgical History: Reports: Hysterectomy Musculoskeletal Surgical History: Reports: None Oncologic Surgical History: Reports: None Dermatological Surgical History: Reports: None Social & Family History - Family History Family Medical History: Unobtainable - Tobacco Use Smoking Status *Q: Never Smoker - Caffeine Use Caffeine Use: Reports: None - Recreational Drug Use Recreational Drug Use: No ED ROS GENERAL - Review of Systems Review Of Systems: See Below Constitutional: Reports: No Symptoms Respiratory: Reports: No Symptoms Cardiovascular: Reports: No Symptoms GI/Abdominal: Reports: Abdominal Pain, Constipation Neurological: Reports: No Symptoms ED EXAM, GI/ABD - Physical Exam Exam: See Below Exam Limited By: No Limitations General Appearance: Alert, WD/WN, No Apparent Distress GI/Abdominal Exam: Normal Bowel Sounds, Non-Tender, No Distention, Other (fecal impaction) Course - Vital Signs Text/Narrative:: She has constipation of opioid usage. She needed digital disimpaction and enemas. She had good results. She is discharged home in stable condition. Last Recorded V/S: Last Vital Signs Temp 35.7 C L 10/15/19 13:07 Pulse 76 10/15/19 15:17 Resp 12 10/15/19 15:17 BP 135/69 10/15/19 15:17 Pulse Ox 98 10/15/19 15:17 - Orders/Labs/Meds Meds: Medications Discontinued Medications Generic Name Dose Route Start Last Admin Trade Name Francis PRN Reason Stop Dose Admin Mineral Oil 133 ml 10/15/19 13:29 10/15/19 13:30 Mineral Oil RECTAL 10/15/19 13:30 1 applic ONETIME ONE Administration Sodium Biphosphate/Sodium Phosphate 133 ml 10/15/19 13:27 Fleet Enema RECTAL 10/15/19 13:28 ONETIME ONE Departure - Departure Time of Disposition: 17:10 Disposition: Home, Self-Care 01 Condition: Good Clinical Impression: Constipation - Discharge Information Instructions: Chronic Constipation Referrals: Jennifer Bledsoe PA-C [Primary Care Provider] - Forms: ED Department Discharge Additional Instructions: Continue all your current medications and follow up with your doctor as needed. Sepsis Event Note (ED) - Evaluation Sepsis Screening Result: No Definite Risk - Focused Exam Vital Signs: Vital Signs Temp Pulse Resp BP Pulse Ox 10/15/19 15:17 76 12 135/69 98 10/15/19 14:01 70 12 126/79 99 10/15/19 13:07 35.7 C L 70 14 145/78 H 97
[2019-10-15 15:17] VITALS: BP 135/69; PULSE 76
== END 2019-10-15 17:31 | disposition home or self-care (01) ==
LOC: JP.ED 11:32
DX: K59.00 Constipation, unspecified (principal); I10 Essential (primary) hypertension; E78.00 Pure hypercholesterolemia, unspecified; M19.90 Unspecified osteoarthritis, unspecified site; F32.9 Major depressive disorder, single episode, unspecified; Z91.048 Other nonmedicinal substance allergy status; Z79.899 Other long term (current) drug therapy
CPT/HCPCS: 99283; A9270

== ENCOUNTER 2019-10-20 07:50 | Emergency (ER) | payer MEDICARE, BC ==
[2019-10-20] MEDS ORDERED: HYDROmorphone 1 MG/ML Syringe IM ONE (08:34)
--- NOTE | 2019-10-20 08:41 | EDM.PDOC ---
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 She is on chronic pain contract combination of hydrocodone up to 8 tabs per day 10 mg as well as 75 mcg fentanyl patch. She states the pain does get worse at night she continues to use her patch did take a hydrocodone this morning. She is not having difficulty with c onstipation describes the pain as an aching bone pain across chest and shoulders into the arm bilaterally Anterior Chest Pain Score (Numeric/FACES): 8 - Related Data Allergies Allergy/AdvReac Type Severity Reaction Status Date / Time environmental Allergy Other Uncoded 10/20/19 08:09 Home Meds: Home Meds Doxazosin Mesylate [Cardura] 1 mg PO DAILY 11/03/14 [History] atenoloL [Atenolol] 50 mg PO DAILY 11/03/14 [History] levETIRAcetam [Keppra] 500 mg PO DAILY 09/20/18 [History] Ondansetron [Zofran ODT] 4 mg PO DAILY PRN 08/06/19 [History] Prochlorperazine [Compazine] 10 mg PO Q6H PRN #30 tab 08/06/19 [Rx] Prochlorperazine [Compazine] 25 mg RC BID PRN #10 supp.rect 08/06/19 [Rx] Sucralfate [Carafate] 1 gm PO ASDIRECTED 08/06/19 [History] fentaNYL [Duragesic] 75 mcg TD Q72H 10/15/19 [History] Hydrocodone/Acetaminophen [Witt 10-325 Tablet] 1 tab PO Q4H PRN 10/20/19 [History] Past Medical History HEENT History: Reports: Macular Degeneration Cardiovascular History: Reports: High Cholesterol, Hypertension Respiratory History: Reports: SOB 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: Reports: Chronic Constipation, GERD 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, Musculoskeletal History: Reports: Arthritis, Osteoarthritis Psychiatric History: Reports: Depression Hematologic History: Reports: Folic Acid Oncologic (Cancer) History: Reports: Bone, Brain, Lung, Metastatic, Other (See Below) Other Oncologic History: 1980 lympnode in left hip with radiation, left arm Other Dermatologic History: RASH IN BILATERAL GROIN AREA - Infectious Disease History Infectious Disease History: Reports: Chicken Pox, Measles, Mumps - Past Surgical History Head Surgeries/Procedures: Reports: None HEENT Surgical History: Reports: Cataract Surgery Cardiovascular Surgical History: Reports: None Respiratory Surgical History: Reports: Lung Biopsies GI Surgical History: Reports: Colonoscopy Female Surgical History: Reports: Hysterectomy Musculoskeletal Surgical History: Reports: None Oncologic Surgical History: Reports: None Dermatological Surgical History: Reports: None Social & Family History - Family History Family Medical History: Unobtainable - Tobacco Use Smoking Status *Q: Never Smoker Second Hand Smoke Exposure: No - Caffeine Use Caffeine Use: Reports: Tea - Recreational Drug Use Recreational Drug Use: No ED ROS GENERAL - Review of Systems Review Of Systems: See Below Constitutional: Reports: No Symptoms HEENT: Reports: No Symptoms Respiratory: Reports: No Symptoms Cardiovascular: Reports: Chest Pain GI/Abdominal: Reports: No Symptoms : Reports: No Symptoms Musculoskeletal: Reports: Shoulder Pain, Arm Pain, Back Pain ED EXAM, GENERAL - Physical Exam Exam: See Below Exam Limited By: No Limitations General Appearance: Alert, WD/WN, No Apparent Distress Respiratory/Chest: No Respiratory Distress, Chest Non-Tender Course - Vital Signs Last Recorded V/S: Last Vital Signs Temp 97.7 F 10/20/19 08:19 Pulse 65 10/20/19 08:19 Resp 25 H 10/20/19 08:19 BP 143/73 H 10/20/19 08:19 Pulse Ox 99 10/20/19 08:19 - Orders/Labs/Meds Meds: Medications Discontinued Medications Generic Name Dose Route Start Last Admin Trade Name Freq PRN Reason Stop Dose Admin Hydromorphone HCl 1 mg 10/20/19 08:34 10/20/19 08:43 Dilaudid IM 10/20/19 08:35 1 mg ONETIME ONE Administration Departure - Departure Time of Disposition: 09:35 Disposition: Home, Self-Care 01 Condition: Fair Clinical Impression: Lung cancer metastatic to bone, Lung cancer metastatic to brain Adenocarcinoma of lung, stage 4 Qualifiers: Laterality: left Qualified Code(s): C34.92 - Malignant neoplasm of unspecified part of left bronchus or lung - Discharge Information Referrals: PCP,None [Primary Care Provider] - Forms: ED Department Discharge Additional Instructions: Hospice will call you today and set up a consultation for tomorrow, please take your hydrocodone as needed you can use up to 8 tabs per day please stay on top of your pain, call or return to the emergency department worsening of symptoms Sepsis Event Note (ED) - Evaluation Sepsis Screening Result: No Definite Risk - Focused Exam Vital Signs: Vital Signs Temp Pulse Resp BP Pulse Ox 10/20/19 08:19 97.7 F 65 25 H 143/73 H 99 10/20/19 08:08 97.7 F 65 25 H 143/73 H 99 - Assessment/Plan Plan: Assessment Acuity = acute Site and laterality = primary adenocarcinoma of the lung with metastases to bone and brain Etiology = unknown Manifestations = chronic pain syndrome Location of injury = Home Lab values = none Plan She had good relief with 1 mg hydromorphone I did talk to her about options she would like to move to comfort care only also call discussed case with Jenn at hospice [phone] she kindly agreed to set up a consultation for tomorrow This note was dictated using [employer] voice recognition software please call with any questions on syntax or grammar.
[2019-10-20 10:03] VITALS: BP 157/73; PULSE 70
== END 2019-10-20 09:50 | disposition home or self-care (01) ==
LOC: JP.ED 07:50
DX: C34.92 Malignant neoplasm of unspecified part of left bronchus or lung (principal); C79.51 Secondary malignant neoplasm of bone; C79.31 Secondary malignant neoplasm of brain; I10 Essential (primary) hypertension; Z79.899 Other long term (current) drug therapy
CPT/HCPCS: 96372; 99284; J1170; 99283